=== PATIENT | female | born 1960 | race Caucasian/White ===

== ENCOUNTER 2017-12-20 13:46 | Outpatient (CLI) | payer BC ==
--- NOTE | 2017-12-20 15:08 | RAD ---
LEFT ANKLE 3 VIEWS: Date: 12/20/17 HISTORY: Left ankle pain. FINDINGS: Ankle mortise and talar dome are intact. Mild joint space narrowing and osteophytosis. Small well cor ticated ossific fragment adjacent to the tip of the lateral malleolus may represent old ununited osse ous avulsion. Degenerative changes of the mid foot. Small plantar heel spur. IMPRESSION: Mild osteoarthritic changes. No acute osseous abnormalities are demonstrated. POS: [facility]
== END 2017-12-20 13:47 | disposition home or self-care (01) ==
LOC: SCSRAD 13:46
PROVIDERS: ATTEND Internal Medicine Rheumatology
DX: M25.572 Pain in left ankle and joints of left foot (principal); M19.072 Primary osteoarthritis, left ankle and foot

== ENCOUNTER 2021-08-11 09:33 | Outpatient (CLI) | payer BC | END 2021-08-11 09:34 | disposition home or self-care (01) | LOC: RAD 09:33 | PROVIDERS: ATTEND Internal Medicine Critical Care Medicine | DX: R06.09 Other forms of dyspnea (principal); J90 Pleural effusion, not elsewhere classified | CPT/HCPCS: 71046 ==

== ENCOUNTER 2021-08-25 15:19 | Outpatient (CLI) | payer BC | END 2021-08-25 15:20 | disposition home or self-care (01) | LOC: LABBT 15:19 | PROVIDERS: ATTEND Internal Medicine Critical Care Medicine | DX: Z20.822 Contact with and (suspected) exposure to COVID-19 (principal) | CPT/HCPCS: 87811 ==

== ENCOUNTER 2021-08-30 06:55 | Day surgery (SDC) | payer BC ==
[2021-08-29 12:44] VITALS: BMI 28.1
[2021-08-30] MEDS ORDERED: Lidocaine 1% MPF 2 ML VIAL ONE ×2 (10:16→11:05)
[2021-08-30 10:34] LABS: Fluid, pH - Pleural Fld 7.13 (7.60 - 7.66)
[2021-08-30 11:07] LABS: Pleural Fluid, Amylase Less than 30 U/L (Not Available); Pleural Fluid, Glucose Less than 20 mg/dL; Pleural Fluid, LDH 2011 U/L (Not Available); Pleural Fluid, Protein 5.4 g/dL
[2021-08-30 11:48] LABS: Body Fluid Source Pleural Fluid; Clarity Hazy (Clear); RBC Count-Automated (BF) 852 /cu.mm; Tube # EDTA; WBC/Nucleated-Auto (BF) 369 /cu.mm
[2021-08-30 11:49] LABS: BF Color Colorless
[2021-08-30 12:25] LABS: BF Segmented Neutrophils 19 %; Cell Count Non Hematic 64 %; Lymphocytes 17 %
== END 2021-08-30 11:58 | disposition home or self-care (01) ==
LOC: SDC 06:55
PROVIDERS: ATTEND Internal Medicine Critical Care Medicine
PROC: 0W993ZZ Drainage of Right Pleural Cavity, Percutaneous Approach (ICD-10-PCS; principal; 2021-08-30)
DX: J90 Pleural effusion, not elsewhere classified (principal); M06.9 Rheumatoid arthritis, unspecified; F10.20 Alcohol dependence, uncomplicated; I10 Essential (primary) hypertension; Z79.899 Other long term (current) drug therapy
CPT/HCPCS: 32554; 71045; 82150; 82945; 83615; 83986; 84157; 85060; 87070; 87205; 88112; 88305; 89051; J1642

== ENCOUNTER 2021-10-25 09:48 | Outpatient (CLI) | payer BC | END 2021-10-25 09:49 | disposition home or self-care (01) | LOC: RAD 09:48 | PROVIDERS: ATTEND Internal Medicine Critical Care Medicine | DX: R06.09 Other forms of dyspnea (principal); J90 Pleural effusion, not elsewhere classified | CPT/HCPCS: 71046 ==

== ENCOUNTER 2022-05-10 10:26 | Outpatient (CLI) | payer BC | END 2022-05-10 10:27 | disposition home or self-care (01) | LOC: RAD 10:26 | PROVIDERS: ATTEND Internal Medicine Critical Care Medicine | DX: R06.00 Dyspnea, unspecified (principal); J90 Pleural effusion, not elsewhere classified | CPT/HCPCS: 71046 ==

== ENCOUNTER 2022-09-14 10:46 | Outpatient (CLI) | payer BC | END 2022-09-14 10:47 | disposition home or self-care (01) | LOC: RAD 10:46 | PROVIDERS: ATTEND Internal Medicine Rheumatology | DX: R05.9 Cough, unspecified (principal); J44.9 Chronic obstructive pulmonary disease, unspecified; R91.1 Solitary pulmonary nodule | CPT/HCPCS: 71046 ==

== ENCOUNTER 2022-11-22 10:31 | Outpatient (CLI) | payer BC | END 2022-11-22 10:32 | disposition home or self-care (01) | LOC: RAD 10:31 | PROVIDERS: ATTEND Internal Medicine Critical Care Medicine | DX: R06.00 Dyspnea, unspecified (principal); J90 Pleural effusion, not elsewhere classified | CPT/HCPCS: 71046 ==

== ENCOUNTER 2024-02-19 15:11 | Outpatient (CLI) | payer BC | END 2024-02-19 15:12 | disposition home or self-care (01) | LOC: RAD 15:11 | PROVIDERS: ATTEND Internal Medicine Critical Care Medicine | DX: R06.00 Dyspnea, unspecified (principal); J84.9 Interstitial pulmonary disease, unspecified | CPT/HCPCS: 71046 ==

== ENCOUNTER 2024-11-24 09:50 | Outpatient (CLI) | payer BC, MEDICARE | END 2024-11-24 09:51 | disposition home or self-care (01) | LOC: SCSRAD 09:50 | PROVIDERS: ATTEND Nurse Practitioner Family | DX: R05.1 Acute cough (principal); R91.8 Other nonspecific abnormal finding of lung field; J94.8 Other specified pleural conditions | CPT/HCPCS: 71046 ==

== ENCOUNTER 2024-12-21 13:02 | Outpatient (CLI) | payer BC | END 2024-12-21 13:03 | disposition home or self-care (01) | LOC: RAD 13:02 | PROVIDERS: ATTEND Student in an Organized Health Care Education/Training Program | DX: J90 Pleural effusion, not elsewhere classified (principal); J93.9 Pneumothorax, unspecified | CPT/HCPCS: 71046 ==

== ENCOUNTER 2024-12-22 13:11 | Outpatient (CLI) | payer BC | END 2024-12-22 13:12 | disposition home or self-care (01) | LOC: RAD 13:11 | PROVIDERS: ATTEND Student in an Organized Health Care Education/Training Program | DX: J90 Pleural effusion, not elsewhere classified (principal); J93.9 Pneumothorax, unspecified | CPT/HCPCS: 71046 ==